=== PATIENT | female | born 1960 | race Caucasian/White ===

== ENCOUNTER 2016-11-27 00:30 | Emergency (ER) | payer OTHER ==
[2016-11-27 01:14] LABS: Urine Bilirubin Negative (NEGATIVE); Urine Blood 25 /ul (NEGATIVE); Urine Ketone Negative (NEGATIVE); Urine Nitrite Negative (NEGATIVE); Urine Protein Negative (NEGATIVE); Urine Urobilinogen Normal (NORMAL)
[2016-11-27 01:17] LABS: Urine Appearance Slightly Cloudy; Urine Bacteria None Seen; Urine Color Yellow; Urine WBC 0-5 /hpf (0-5)
[2016-11-27 01:18] LABS: Urine Amorphous Sediment Moderate - 2+ (NONE-FEW); Urine Mucus Few - 1+
--- OUTSIDE RECORDS SUMMARY | 2016-11-27 01:32 | XMS REPORT | Continuity of Care Document ---
:1960 Demographics Phone Unavailable Preferred Language Unknown Marital Status Unknown Synagogue Affiliation Unknown Race Unknown Ethnic Group Unknown Author Organization [facility] ([facility]) [place] [address] Phone [phone] Care Team Providers Name Role Phone Unavailable Primary Care Provider Unavailable Source Comments This disclosure is being made pursuant to the Care Everywhere program, applicable federal and state laws, and may not contain all informaitonavailable regarding this patient.[facility] ([facility]) Active Allergies and Adverse Reactions Not on File Current Medications Not on file Active Problems Not on file Social History Tobacco Use Types Packs/Day Years Used Date Never Assessed Plan of Care Health Maintenance Due Date Last Done Comments HCV Screening 1960 Hepatitis B Vaccine (1 of 3 - Primary Series) 1960 Tdap Vaccine 1971 Lipid Disorder Screening 1978 MMR Vaccine 1978 Td Vaccine 1978 Cervical Cancer Screening 1990 Mammogram 2000 Colonoscopy 2010 Influenza Vaccine: Seasonal (#1) 05/17/2016 Results from Last 3 Months Not on file
--- NOTE | 2016-11-27 01:35 | ERNOTE ---
ER Female [facility] Date of Service: 11/27/16 Stated Complaint: SEVERE PAIN BY LEFT KIDNEY Presenting Symptoms: other - patient 56-year-old female with left flank pain. Patient felt it was kidney related due to location. She's had no urinary symptoms such as dysuria hematuria. Patient does not have prior history of back problems. Patient noticed pain worse with movement. Pain has been constant since onset somewhat improved by use of [id number] Aleve. Time Seen by Provider: 11/27/16 01:22 Source: patient Exam Limitations: no limitations Allergies/Adverse Reactions: Allergies No Known Drug Allergies Allergy (Verified 11/27/16 00:45) Home Medications: HOME MEDICATIONS Ciprofloxacin/Ciprofloxa HCl [Cipro Xr 500 mg Tablet] 500 mg PO BID #20 tbmp.24hr 11/27/16 [Last Taken Unknown] metroNIDAZOLE [Flagyl] 500 mg PO QID #40 tab 11/27/16 [Last Taken Unknown] oxyCODONE HCL/ACETAMINOPHEN [Percocet 5 MG/325 MG] 1 - 2 tab PO Q4H PRN #30 tab 11/27/16 [Last Taken Unknown] - History of Present Illness Date (Duration): 11/27/16 Time (Timing): 01:28 Timing: Present: constant Quality: Present: moderate Onset Location: Present: left flank Radiation: Present: none Activities at Onset: Present: none Prior Abdominal Problems: Present: none Sexual Dante History: Present: not active Modifying Factors - (Improves): Present: analgesics Modifying Factors - (Worsens): Present: coughing, exercise, movement Associated Symptoms: Present: denies symptoms Review of Systems - Review of Systems Constitutional: Present: no symptoms reported EYE: Present: no symptoms reported ENT: Present: no symptoms reported Respiratory: Present: no symptoms reported Cardiology: Present: no symptoms reported Gastrointestinal/Abdominal: Present: no symptoms reported Genitourinary: Present: no symptoms reported Musculoskeletal: Present: back pain, muscle pain, muscle stiffness Skin: Present: no symptoms reported Neurological: Present: no symptoms reported Endocrine: Present: no symptoms reported Hematologic/Lymphatic: Present: no symptoms reported Psych: Present: no symptoms reported - Patient's Past Medical History Patient History - Medical: No pertinent hx Patient History - Cardiac/Respiratory: No pertinent hx Patient History - Cancer: No Hx of Cancer Patient History - Surgical Procedures: Cholecystectomy, T & A Patient History - Other: None LMP (females 10-50): Menopausal - Social History Living Situations: home Psych History: No pertinent hx Smoking Status: Current every day smoker Alcohol Use: none Drug Use: none Physical Exam - Physical Exam General Appearance: Present: wd/wn, alert, mild distress Ears, Nose, Throat: Present: normal ENT inspection, hearing grossly normal, normal pharynx Neck: Present: normal inspection, nontender Respiratory: Present: no respiratory distress, normal breath sounds, no accessory muscle use, chest nontender, lungs clear Cardiovascular/Chest: Present: regular rate, rhythm, no murmur, normal peripheral pulses Gastrointestinal/Abdominal: Present: normal bowel sounds, nontender, nondistended, soft, no organomegaly Rectal Exam: Present: deferred Back Exam: Present: CVA tenderness (L), vertebral tenderness, decreased range of motion, muscle spasm Extremity Exam: Present: normal inspection, non-tender, no edema, normal range of motion Neurological Exam: Present: alert, oriented, normal mood/affect, no motor/ sensory deficits Skin Exam: Present: normal color, warm/dry Lymphatic Exam: Present: no adenopathy ED Progress - Results and Orders Patient's Lab Results:: I have reviewed the patient's lab results. - Vital Signs Patient's Vital Signs:: I have reviewed the patient's vital signs. - now she Vital Signs: Vital Signs 11/27/16 00:40 Temperature 36.0 C L Pulse Rate 85 Respiratory 18 Rate Blood Pressure 135/72 O2 Sat by Pulse 100 Oximetry - Progress/Reassessment Chief Complaint: Genitourinary Problem Departure Clinical Impression: Diverticulitis - Departure Disposition: Home self-care Condition: Good Instructions: Diverticulitis, [id number] Additional Instructions: Please pear picker antibiotics early tomorrow morning as well as pain medications. Ciprofloxacin twice daily for 10 days. Metronidazole 4 times a day for 10 days. Percocet 1-2 tablets every 8 hours as needed for pain. Recommend 1 cup to 2 cups yogurt daily as probiotic. Follow-up with primary provider or here at the emergency room if condition worsens despite the above treatment. Referrals: Kem Guerra DO [Primary Care Provider] - Prescriptions: Ciprofloxacin/Ciprofloxa HCl [Cipro Xr 500 mg Tablet] 500 mg PO BID #20 tbmp.24hr metroNIDAZOLE [Flagyl] 500 mg PO QID #40 tab oxyCODONE HCL/ACETAMINOPHEN [Percocet 5 MG/325 MG] 1 - 2 tab PO Q4H PRN #30 tab PRN Reason: Pain
[2016-11-27 01:56] LABS: Hemoglobin 14.9 gm/dL (12.5-16.0); Mean Cell Volume 89.6 fl (78-100); Mean Corpuscular Hemoglobin 29.7 pg (27-31); Mean Corpuscular Hgb Conc 33.1 g/dl (32-36); Mean Platelet Volume 10.9 fl (6.0-9.5); Neutrophil # 6.9 K/mm3 (1.3-6.0); Neutrophil % 66.7 % (42-75.0); Platelet Count 195 K/mm3 (150-450); Red Blood Count 5.02 M/mm3 (4.2-5.4); Red Cell Distribution Width 13.6 % (11.5-14.0); White Blood Count 10.4 K/mm3 (4.0-10.5)
[2016-11-27] MEDS ORDERED: NORMAL SALINE 1,000 ML IV PRN (02:05)
[2016-11-27] MEDS ORDERED: KETOROLAC TROMETHAMINE 30 MG/ML VIAL IV ONE (02:07)
[2016-11-27 02:21] LABS: Albumin * 3.5 gm/dl (3.4-5.0); Anion Gap 15.3 mmol/L (6.8-13.8); BUN/Creatinine Ratio 14.3 (9.0-21.6); Bilirubin, Total 0.4 mg/dL (0.0-1.1); Ca. Corrected For Albumin 9.5 mg/dL (8.4-10.2); Calcium * 9.4 mg/dL (7.9-10.9); Potassium 4.3 mmol/L (3.4-4.6); Total Protein 7.6 gm/dL (6.2-8.2)
[2016-11-27] MEDS ORDERED: KETOROLAC TROMETHAMINE 60 MG/2 ML VIAL IM ONE ×2 (02:22)
[2016-11-27] MEDS ORDERED: metroNIDAZOLE 250 MG TABLET PO ONE (02:43)
[2016-11-27] MEDS ORDERED: oxyCODONE HCL/ACETAMINOPHEN 1 TAB TABLET PO ONE (02:44)
[2016-11-27] MEDS ORDERED: CIPROFLOXACIN HCL 250 MG TABLET PO ONE (02:44)
[2016-11-27] MEDS ORDERED: CIPROFLOXACIN HCL 250 MG TABLET ONE (02:50)
[2016-11-27] MEDS ORDERED: metroNIDAZOLE 250 MG TABLET ONE (02:50)
[2016-11-27] MEDS ORDERED: oxyCODONE HCL/ACETAMINOPHEN 1 TAB TABLET ONE (02:50)
[2016-11-27 04:50] VITALS: BP 128/74
== END 2016-11-27 02:57 | disposition home or self-care (01) ==
LOC: ER 00:30
DX: K57.92 Diverticulitis of intestine, part unspecified, without perforation or abscess without bleeding (principal); F17.210 Nicotine dependence, cigarettes, uncomplicated

== ENCOUNTER 2017-01-29 01:51 | Emergency (ER) | payer OTHER ==
[2017-01-29 02:15] VITALS: BP 119/69
[2017-01-29] MEDS ORDERED: HYDROmorphone HCL 1 MG/ML DISP.SYRIN IV ONE (03:08)
[2017-01-29] MEDS ORDERED: METOCLOPRAMIDE HCL 5 MG/ML VIAL IV ONE (03:09)
[2017-01-29 03:19] LABS: Hematocrit 43.4 % (37.0-47.0); Hemoglobin 14.5 gm/dL (12.5-16.0); Mean Cell Volume 89.1 fl (78-100); Mean Corpuscular Hemoglobin 29.8 pg (27-31); Mean Corpuscular Hgb Conc 33.4 g/dl (32-36); Mean Platelet Volume 10.3 fl (6.0-9.5); Neutrophil # 11.7 K/mm3 (1.3-6.0); Neutrophil % 77.2 % (42-75.0); Platelet Count 180 K/mm3 (150-450); Red Blood Count 4.87 M/mm3 (4.2-5.4); Red Cell Distribution Width 13.7 % (11.5-14.0); White Blood Count 15.1 K/mm3 (4.0-10.5)
[2017-01-29 03:33] LABS: Albumin * 3.5 gm/dl (3.4-5.0); Anion Gap 16.1 mmol/L (6.8-13.8); BUN/Creatinine Ratio 13.8 (9.0-21.6); Bilirubin, Total 0.4 mg/dL (0.0-1.1); Ca. Corrected For Albumin 8.9 mg/dL (8.4-10.2); Calcium * 8.8 mg/dL (7.9-10.9); Carbon Dioxide 24.2 mmol/L (24-32.6); Potassium 4.3 mmol/L (3.4-4.6); Total Protein 7.7 gm/dL (6.2-8.2)
[2017-01-29 03:42] LABS: Urine Bilirubin Negative (NEGATIVE); Urine Ketone Negative (NEGATIVE); Urine Nitrite Negative (NEGATIVE); Urine Protein Negative (NEGATIVE); Urine Specific Gravity <=1.005 SP.GR. (1.005-1.010); Urine Urobilinogen Normal (NORMAL)
[2017-01-29 03:45] LABS: Urine Appearance Clear; Urine Bacteria None Seen; Urine Blood Negative /ul (NEGATIVE); Urine Color Pale Yellow; Urine RBC 0-5 /hpf (0-5); Urine WBC 0-5 /hpf (0-5)
[2017-01-29] MEDS ORDERED: HYDROmorphone HCL 1 MG/ML DISP.SYRIN ONE (03:47)
[2017-01-29] MEDS ORDERED: METOCLOPRAMIDE HCL 5 MG/ML VIAL ONE (03:48)
--- OUTSIDE RECORDS SUMMARY | 2017-01-29 04:26 | XMS REPORT | Continuity of Care Document ---
:1960 Demographics Phone Unavailable Preferred Language Unknown Marital Status Unknown Christianity Affiliation Unknown Race Unknown Ethnic Group Unknown Author Organization [facility] ([facility]) [place] [address] Phone [phone] Care Team Providers Name Role Phone Unavailable Primary Care Provider Unavailable Source Comments This disclosure is being made pursuant to the Care Everywhere program, applicable federal and state laws, and may not contain all informaitonavailable regarding this patient.[facility] ([facility]) Active Allergies and Adverse Reactions Not on [...]
--- NOTE | 2017-01-29 05:31 | ERNOTE ---
Back Pain ER HPI Date of Service: 01/29/17 Source: patient Exam Limitations: no limitations Immunizations: IMMUNIZATION HX Immunizations Up to Date Yes History of Influenza Vaccine No Hx Pneumococcal Vaccination No Allergies/Adverse Reactions: Allergies No Known Drug Allergies Allergy (Verified 11/27/16 00:45) Home Medications: HOME MEDICATIONS Ciprofloxacin/Ciprofloxa HCl [Cipro Xr 500 mg Tablet] 500 mg PO BID #20 tbmp.24hr 11/27/16 [Last Taken Unknown] metroNIDAZOLE [Flagyl] 500 mg PO QID #40 tab 11/27/16 [Last Taken Unknown] oxyCODONE HCL/ACETAMINOPHEN [Percocet 5 MG/325 MG] 1 - 2 tab PO Q4H PRN #30 tab 11/27/16 [Last Taken Unknown] Lidocaine [Lidoderm 5%] 1 patch TP DAILY PRN #20 patch 01/29/17 [Last Taken Unknown] Naproxen 500 mg PO BID PRN #30 tablet. 01/29/17 [Last Taken Unknown] Narrative: 56 year old that complains of left flank pain for two months. The pain is sharp and constant, but had been intermittent previously. Nothing increases the pain, and no pain medications were taken prior to coming to the ED. Denies any fevers , chill, chest pain, shortness of breath, dysuria, N/V/D. Timing: Reports: constant Quality/Severity: Reports: severe Location of pain: Reports: other - left flank Activities at Onset: Reports: none Recent Injury?: Reports: no Modifying Factors - (Improves): Reports: other - nothing Modifying Factors - (Worsens): Reports: other - movement Associated Symptoms: Reports: difficulty walking Prior Treament: Reports: treated by physician Review of Systems - Review of Systems Constitutional: Present: no symptoms reported EYE: Present: no symptoms reported ENT: Present: no symptoms reported Respiratory: Present: no symptoms reported Cardiology: Present: no symptoms reported Gastrointestinal/Abdominal: Present: no symptoms reported Genitourinary: Present: no symptoms reported Musculoskeletal: Present: no symptoms reported Skin: Present: no symptoms reported Neurological: Present: no symptoms reported Endocrine: Present: no symptoms reported Hematologic/Lymphatic: Present: no symptoms reported Psych: Present: no symptoms reported - Patient's Past Medical History Patient History - Medical: No pertinent hx Patient History - Cardiac/Respiratory: No pertinent hx Patient History - Cancer: No Hx of Cancer Patient History - Surgical Procedures: Cholecystectomy, T & A Patient History - Other: None - Social History Living Situations: spouse Psych History: No pertinent hx Smoking Status: Current every day smoker Have you smoked in the past 12 months: No Do you dip or chew tobacco: No Alcohol Use: none Drug Use: none - Immunizations Immunizations Up to Date: Yes Hx Pneumococcal Vaccination: No History of Influenza Vaccine: No Physical Exam - Physical Exam General Appearance: Present: alert Eye Exam: Normal inspection: bilateral, PERRL: bilateral Ears, Nose, Throat: Present: normal ENT inspection Neck: Present: normal inspection Respiratory: Present: no respiratory distress Cardiovascular/Chest: Present: regular rate, rhythm Gastrointestinal/Abdominal: Present: nontender, nondistended, soft Back Exam: Present: normal inspection Extremity Exam: Present: normal inspection Neurological Exam: Present: alert, oriented, normal mood/affect, 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 - Vital Signs Patient's Vital Signs:: I have reviewed the patient's vital signs. Vital Signs: Vital Signs 01/29/17 01:51 Temperature 36.7 C Pulse Rate 83 Respiratory 18 Rate Blood Pressure 119/69 O2 Sat by Pulse 97 Oximetry - EKG EKG: NSR EKG read: Interp. 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 01/29/17 06:15 It is unclear as to where the pain is coming from. She is scheduled to have an MRI done and is encouraged to follow through on further testing. Departure Clinical Impression: Flank pain - Departure Disposition: Home self-care Condition: Fair Instructions: Flank Pain, [id number] Print Language: Georgian Additional Instructions: Follow up with your physician. Referrals: Kem Guerra DO [Primary Care Provider] - Prescriptions: Lidocaine [Lidoderm 5%] 1 patch TP DAILY PRN #20 patch PRN Reason: Pain Naproxen 500 mg PO BID PRN #30 tablet.dr JACOBO Reason: Pain
[2017-01-29] MEDS ORDERED: LIDOCAINE 1 PATCH ADH..PATCH TP ONE ×2 (06:04→06:30)
== END 2017-01-29 06:34 | disposition home or self-care (01) ==
LOC: ER 01:51
DX: R10.9 Unspecified abdominal pain (principal); F17.210 Nicotine dependence, cigarettes, uncomplicated